=== PATIENT | male | born 1975 | race Caucasian/White ===

== ENCOUNTER 2023-06-02 09:09 | Outpatient (CLI) | payer OTHER, SELFPAY ==
--- NOTE | 2023-06-02 10:32 | W.ANESCHARGE ---
Anesthesia Charges Start Date/Time Anesthesia Start Date: 06/02/23 Anesthesia Start Time: 10:03 Stop Date/Time Anesthesia Stop Date: 06/02/23 Anesthesia Stop Time: 10:29
--- NOTE | 2023-06-02 11:15 | W.ANESCHARGE ---
Anesthesia Charges Start Date/Time Anesthesia Start Date: 06/02/23 Anesthesia Start Time: 10:03 Stop Date/Time Anesthesia Stop Date: 06/02/23 Anesthesia Stop Time: 10:29
== END 2023-06-02 09:10 | disposition home or self-care (01) ==
PROVIDERS: PCP Family Medicine; Visit Provider Internal Medicine
DX: Z12.11 Encounter for screening for malignant neoplasm of colon (principal); K63.5 Polyp of colon; K64.8 Other hemorrhoids; K57.30 Diverticulosis of large intestine without perforation or abscess without bleeding; Z80.0 Family history of malignant neoplasm of digestive organs; Z86.010 Personal history of colon polyps
CPT/HCPCS: 45380; 811; 88305; J2704